=== PATIENT | male | born 1995 | race Caucasian/White ===

== ENCOUNTER → 2017-04-22 | Outpatient (CLI) | payer MEDICAID ==
--- NOTE | 2017-04-22 16:36 | Diagnostic Imaging Report ---
INDICATION: Pain, status post injury. COMPARISON: None EXAM: Three radiographic views of the left ankle were obtained. FINDINGS: There is moderate diffuse soft tissue swelling and edema. Underlying osseous structures show no evidence of acute fracture or dislocation. Joint spaces are maintained. No unexpected radiopaque foreign bodies are seen. IMPRESSION: 1. Soft tissue swelling, but no radiographic evidence of acute fracture or dislocation of the left ankle. Dictated by: Dictated on workstation # [id number]
== END ==
LOC: RAD 16:12
PROVIDERS: ATTEND Nurse Practitioner Family
DX: M25.572 Pain in left ankle and joints of left foot (principal); R22.42 Localized swelling, mass and lump, left lower limb
CPT/HCPCS: 73610

== ENCOUNTER 2019-01-28 10:08 | Emergency (ER) | payer MEDICAID ==
[~2019-01-28] VITALS: Ht 172.7 cm; Wt 113.4 kg
--- NOTE | 2019-01-28 10:42 | ED Upper Extremity ---
General Chief Complaint: Laceration Stated Complaint: FINGER LAC Source: patient, caregiver Exam Limitations: no limitations History of Present Illness Date Seen by Provider: Jan 28, 2019 Time Seen by Provider: 10:33 Initial Comments Patient presents to ER by private conveyance with chief complaint of just prior to arrival he was using a electric saw on an arm and it came down and struck the top of his left thumbnail area is not having any significant pain now. He is not up-to-date on his tetanus shot. He does not have any numbness in his thumb or lack of range of motion. He is diabetic but not on insulin. Allergies and Home Medications Allergies Coded Allergies: No Known Drug Allergies (Unverified , 01/28/19) Patient Home Medication List Home Medication List Reviewed: Yes Review of Systems Constitutional: No chills, No diaphoresis EENTM: No hearing loss, No ear pain Respiratory: No cough, No short of breath Cardiovascular: No chest pain, No edema Past Ufccygb-Kmmdyu-Iuitvj Hx Patient Social History Alcohol Use: Denies Use Recreational Drug Use: No Smoking Status: Never a Smoker Physical Exam Vital Signs Vital Signs - First Documented 01/28/19 10:31 Temp 97.6 Pulse 74 Resp 18 B/P (MAP) 100/62 (75) Pulse Ox 97 O2 Delivery Room Air Capillary Refill : Height, Weight, BMI Height: '" Weight: lbs. oz. kg; BMI Method: General Appearance: WD/WN, no apparent distress HEENT: PERRL/EOMI, pharynx normal Neck: non-tender, normal inspection Cardiovascular: normal peripheral pulses, regular rate, rhythm Respiratory: no respiratory distress, no accessory muscle use Wrist: Yes normal inspection, Yes non-tender, Yes no evidence of injury, Yes normal ROM Hand: normal inspection, normal ROM, Left, nail injury (thumb, first digit distal phalangeal dorsal side has a rough 1 cm x 1 cm laceration consistent with a saw blade without exposed bone distally to the subcutaneous tissue under the nail. The cuticle is intact. Capillary refill is less than 2 seconds and sensat ions intact. Tendons are intact and the patient has full range of motion.) Neurologic/Psychiatric: alert, normal mood/affect, oriented x 3 Procedures/Interventions Wound Location: Upper Extremities Other Wound Location Left hand thumb nail Wound Length (cm): 1 Wound's Depth, Shape: sub Q Wound Explored: no foreign body removed Irrigated w/ Saline (ccs): 100 Betadine Prep?: Yes (Chlorhexidine) Wound Debrided: minimal Other Closure Supply: Wound Adhesive Progress Wound was cleaned thoroughly soaked and then thin layer of glue was applied. After had a chance to dry the nurse applied a sterile dressing. Progress/Results/Core Measures Results/Orders My Orders Orders - MIK MACEDO Dipht,Pertuss(Acell),Tet Adult (Boostrix (01/28/19 10:45) Finger(S) (01/28/19 10:42) Medications Given in ED Current Medications Medications Dose Ordered Sig/Angelito Route Start Time Stop Time Status Last Admin Dose Admin Diphtheria/ Tetanus/Acell Pertussis 0.5 ml ONCE ONCE IM 01/28/19 10:45 01/28/19 10:46 DC 01/28/19 10:58 0.5 ML Vital Signs/I&O 01/28/19 10:31 Temp 97.6 Pulse 74 Resp 18 B/P (MAP) 100/62 (75) Pulse Ox 97 O2 Delivery Room Air Departure Impression Primary Impression: Open wound of thumbnail without complication Qualified Codes: S61.102A - Unspecified open wound of left thumb with damage to nail, initial encounter Disposition: HOME, SELF-CARE Condition: Stable Departure-Patient Inst. Decision time for Depature: 11:58 Referrals: NO,LOCAL PHYSICIAN (PCP) Primary Care Physician HOMA AKHTAR (Family) Primary Care Physician Patient Instructions: Laceration Repair With Glue (DC) Add. Discharge Instructions: Keep the wound clean with regular soap and water. Do not submerse the thumb dishwater, pools, lakes, [place] etc. It's okay to shower. If you bathe then keep the handout of water. Change the dressing as often as the dressing becomes soiled or at least daily. If you have discharge from the wound, significant swelling or pain that is not treated with Tylenol 1000 mg every 8 hours and/or ibuprofen 800 mg every 8 hours then you should follow-up with her doctor. 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 All discharge instructions reviewed with patient and/or family. Voiced understanding. Scripts Sulfamethoxazole/Trimethoprim (Bactrim Ds Tablet) 1 Each Tablet 1 EACH PO BID for 5 Days, #10 TAB 0 Refills Prov: MIK MACEDO 01/28/19 Work/School Note: Work Release Form Date Seen in the Emergency Department: Jan 28, 2019 Return to Work: Jan 28, 2019 Restrictions: Need Release from Doctor Other Restrictions Listed Below: No submersion of left hand and minimize use until 02/04/19. MIK MACEDO Jan 28, 2019 10:42
[2019-01-28] MEDS ORDERED: TETANUS,DIPTH,PERTUSS P/F (BOOSTRIX) 0.5 ML VIAL IM ONE (10:45)
--- NOTE | 2019-01-28 11:00 | NUR ---
Lt thumb cleaned with chlorhexidine solution and rinsed with sterile water. Moist gauze applied over lt thumb per provider order.
--- NOTE | 2019-01-28 11:24 | Diagnostic Imaging Report ---
INDICATION: Injury to left thumb AP view of the left hand and oblique and lateral views of the left thumb are obtained. No fracture or acute bony abnormality is seen. There is no radiopaque foreign body. IMPRESSION: No evidence of fracture or radiopaque foreign body. Dictated by: Dictated on workstation # [id number]
[2019-01-28] MEDS ORDERED: SULF1TAB35 PO (12:00)
[2019-01-28 12:21] VITALS: BP 110/73
== END 2019-01-28 12:21 | disposition home or self-care (01) ==
LOC: EDUNIT# 10:08 → ER 10:09
DX: S61.102A Unspecified open wound of left thumb with damage to nail, initial encounter (principal); E11.9 Type 2 diabetes mellitus without complications; Z23 Encounter for immunization; W31.2XXA Contact with powered woodworking and forming machines, initial encounter
CPT/HCPCS: 73140; 90715

== ENCOUNTER → 2019-05-17 | Outpatient (CLI) | payer MEDICAID ==
[~2019-05-17] MED LIST: SULF1TAB35 PO
--- NOTE | 2019-05-17 17:09 | Diagnostic Imaging Report ---
INDICATION: Pain in the fifth finger. TIME OF EXAM: 01:51 p.m. FINDINGS: Three views of the right fifth finger were obtained. There are tiny osseous densities identified in the dorsal soft tissues at the level of the DIP joint of the fifth finger. These may represent tiny avulsion fracture fragments. Correlation to pain at this location is recommended. The PIP joint is unremarkable. Fifth metacarpal appears to be intact. No other abnormalities are seen. IMPRESSION: Tiny calcifications in the dorsal aspect of the DIP joint of the fifth finger. These may represent tiny avulsion fracture fragments, age indeterminate. No other abnormality is seen. Dictated by: Dictated on workstation # [id number]
== END ==
LOC: RAD 13:41
PROVIDERS: ATTEND Nurse Practitioner
DX: S69.91XA Unspecified injury of right wrist, hand and finger(s), initial encounter (principal)
CPT/HCPCS: 73140